=== PATIENT | male | born 1980 | race African-American/Black ===

== ENCOUNTER 2020-09-26 14:20 | Emergency (ER) | payer BC, SELFPAY ==
[2020-09-26 14:32] VITALS: BP 123/81; PULSE 93; RESP 20; TEMP 37.1; O2SAT 99
--- NOTE | 2020-09-26 14:39 | ED_ITS ---
HPI - Skin/Abscess/Foreign Bdy General Chief complaint: Skin/Abscess/Foreign Body Stated complaint: Scabies Time Seen by Provider: 09/26/20 14:33 Source: patient and RN notes reviewed Mode of arrival: ambulatory Limitations: other (patient agitated) History of Present Illness HPI narrative: This is a 40 year old male who presents for treatment of scabies. Patient states he has been dealing with scabies for 3 months. He states he was recently reevaluated and he was told he did not have scabies, and he needed to be referred to dermatology. He states that he knows he has scabies and he just wants the medication. He states he has sore in his nostrils and he can feel the scabies crawling under his skin. He also reports rash to his ears. 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 He denies using meth. Related Data Allergies Allergy/AdvReac Type Severity Reaction Status Date / Time No Known Allergies Allergy Verified 09/26/20 14:37 Review of Systems Review of Systems: All systems reviewed & are unremarkable except as noted in HPI and below PMFSH Past Medical History Medical History (Updated 09/26/20 @ 14:51 by Jazmin Bernabe MD) Patient denies medical problems Surgical History Surgical History (Updated 09/26/20 @ 14:48 by Jazmin Bernabe MD) No pertinent past surgical history Social History Social History (Updated 09/26/20 @ 14:48 by Jazmin Bernabe MD) Smoking status: Current every day smoker Exam Const: General: no acute distress and alert Orientation/consciousness: patient oriented x3 HENMT: Ears: external ears normal (no rash) Other: left nostril with small scab, no bleeding Eyes: EOM: EOMs intact bilaterally Chest: Chest palpation & inspection: normal inspection of the chest Resp: Effort & Inspection: normal respiratory effort Skin: General skin exam: normal color Rashes: no rashes Neuro: General: patient oriented x3 and moves all extremities Psych: Appearance: grossly normal Thought content: Yes Paranoid delusions present Other: agitated Course Reevaluation(s) Reevaluation #1: I do not think patient has scabies as I do not see a rash. He likely uses methamphetamines. HE is extremely agitated and states he needs a prescription. Date: 09/26/20 Time: 14:49 Vital Signs Vital signs: Vital Signs Temperature 98.7 F 09/26/20 14:32 Pulse Rate 93 09/26/20 14:32 Respiratory Rate 20 09/26/20 14:32 Blood Pressure 123/81 09/26/20 14:32 Pulse Oximetry 99 09/26/20 14:32 Temperature 98.7 F 09/26/20 14:32 Pulse Rate 93 09/26/20 14:32 Respiratory Rate 20 09/26/20 14:32 Blood Pressure 123/81 09/26/20 14:32 Pulse Oximetry 99 09/26/20 14:32 Discharge Plan Discharge Clinical Impression: Formication Patient Disposition: Home, Self-Care Condition: Stable Instructions: Scabies (ED) Additional Instructions: Do not place on your face. Follow up with your primary care physician. Prescriptions: New permethrin [Elimite] 5 % cream 1 applic topical ONCE Qty: 60 RF: 0 Follow-up/Referrals: [facility] [Primary Care Provider] - Tang Graff, [Physician] -
== END 2020-09-26 14:58 | disposition home or self-care (01) ==
LOC: ANHED 14:52
PROVIDERS: Emergency Provider General Practice
DX: R20.2 Paresthesia of skin (principal); F17.200 Nicotine dependence, unspecified, uncomplicated
CPT/HCPCS: 99283